=== PATIENT | female | born 1990 | race Caucasian/White ===

== ENCOUNTER 2019-04-27 14:14 | Emergency (ER) | payer BC ==
[~2019-04-27] VITALS: Ht 160 cm; Wt 70.3 kg
[~2019-04-27 14:14] MED LIST: FLEXERIL PO; IBUPROFEN 600600 M1 PO
[2019-04-27] MEDS ORDERED: CELEXA 20 MG TA20 MG PO (14:25)
[2019-04-27 14:41] LABS: ABSOLUTE EOSINOPHILS 0.2 thou/uL (0.0-0.7); ABSOLUTE LYMPHOCYTES 3.5 thou/uL (0.8-5.3); ABSOLUTE MONOCYTES 0.4 thou/uL (0.0-1.2); ABSOLUTE NEUTROPHILS 4.4 thou/uL (1.6-8.1); BASOPHILS 0.4 %; HEMATOCRIT 39.5 % (37.0-47.0); LYMPHOCYTES 41.1 %; MCH 25.2 pg (26.0-34.0); MCHC 32.8 g/dL (28.0-37.0); MCV 76.7 fL (80.0-100.0); MONOCYTES 5.2 %; NUCLEATED RBCS 0 /100WBC; PLATELET COUNT* 411 thou/uL (150-400); POLYS 51.3 %; RBC 5.15 mil/uL (4.20-5.00); RDW-CV 22.2 % (10.5-14.5); WBC 8.6 thou/uL (4.0-11.0)
[2019-04-27 14:46] LABS: CALCIUM 8.5 mg/dL (8.5-10.1); CREATININE 0.7 mg/dL (0.6-1.3); POTASSIUM 4.1 mmol/L (3.5-5.1)
[2019-04-27 14:51] LABS: ALBUMIN 3.7 g/dL (3.4-5.0); TOTAL BILIRUBIN 0.2 mg/dL (<0.1-1.0); TOTAL PROTEIN 7.6 g/dL (6.4-8.2)
[2019-04-27 15:25] LABS: PLATELET ESTIMATE ADEQUATE
[2019-04-27 15:26] LABS: HYPOCHROMASIA Occasional
[2019-04-27 15:28] LABS: ANISOCYTOSIS Occasional; MICROCYTES Occasional
[2019-04-27 16:07] VITALS: BP 125/88
--- NOTE | 2019-04-28 14:59 | EKG ---
[place] [address] ELECTROCARDIOGRAM REPORT Name: DASIA MARTINLYN Nat Room: [facility]#: [id number] Admission: 04/27/19 Attend Phys: Discharge: 04/27/19 Date of : 88 Report #: [id number] THIS REPORT FOR: //name// [facility] ED Test Date: 2019-04-27 Test Time: 14:25:14 Pat Name: ALEXANDRA MARTIN Department: Room: Gender: F Pump Technician: MS : 1990 Requested By: Celsa Nuñez Order Number: [id number] MD: Jasen Crespo Measurements Intervals [place] Rate: 105 P: 74 MD: 113 QRS: 4 QRSD: 107 T: 32 QT: 384 QTc: 508 Interpretive Statements Sinus tachycardia Low voltage, precordial leads RSR' in V1 or V2, probably normal variant Minimal ST depression, inferior leads Prolonged QT interval No previous ECG available for comparison Electronically Signed On 04-28-2019 14:58:48 [employer]PPORT [employer]IATE by Jasen Crespo [email or web address] <ELECTRONICALLY SIGNED> By: Jasen Crespo MD, [facility] 04/28/19 1458 1425 1425 Jasen Crespo MD, [facility] /EPI
== END 2019-04-27 16:08 | disposition home or self-care (01) ==
LOC: M.ERS 14:14
PROVIDERS: Physician Assistant
DX: O90.89 Other complications of the puerperium, not elsewhere classified (principal); R07.89 Other chest pain; R06.00 Dyspnea, unspecified; G43.909 Migraine, unspecified, not intractable, without status migrainosus; Z91.040 Latex allergy status